=== PATIENT | female | born 2000 | race African-American/Black ===

== ENCOUNTER 2025-01-03 09:32 | Outpatient (AMB) | payer OTHER, SELFPAY ==
--- NOTE | 2025-01-03 09:41 | MHC.OFFVIS ---
Vital Signs 01/03/25 09:45 Height 5 ft Weight 237 lb BMI 46.3 Intake Visit Reasons: 6 Months IIH Allergies No Known Allergies Allergy (Verified 01/01/25 09:51) HPI Comments Details: 24 yo RH woman with obesity who had a routine eye examination on June 21, 2024 when disc edema was noted and she was sent to [facility] ER. She had an LP that revealed opening pressure of 55 and closing pressure of 26, after which she was put on acetazolamide. She had an eye exam recently and was told that her eyes were better. No headaches or double vision. [facility] Medical History (Updated 01/03/25 @ 09:44 by Marla Huertas MD) Idiopathic intracranial hypertension Review of Systems Const Details: No headaches or double vision. Physical Exam Neuro Other: Mental Status: Alert and oriented to person, place, and time. Normal attention. Normal spontaneous speech, fluency, and comprehension. No obvious issues with mood and memory. Affect is appropriate. Cranial Nerves: CN II: Visual can full to confrontation, visual acuity intact. CN III, IV, : Pupils equal, round, reactive to light and accommodation. Extraocular movements are normal. CN V: Facial sensation is normal. CN VII: Facial movements symmetrical. CN VIII: Hearing intact to bedside conversation is normal. CN IX, X: Palate elevates symmetrically. CN XI: Shoulder shrug and head turn symmetrical. CN XII: Tongue midline without atrophy or fasciculations. Extrapyramidal: Full facial expressions and blinking. No rigidity. Movements are appropriate with no tremor or abnormality. Speech: Normal; no dysarthria or tremor. Assessment & Plan Assessment & Plan (1) Idiopathic intracranial hypertension: Comment: LP at [facility] in Jun 2024: OP 55cm, WBCs 1, RBCs 1, Gu 75, Pro 17.? 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 Recent eye examination was better. She was advised to continue to lose weight. She is advised to continue taking the medicine for now and follow-up with eye doctor. Medications: New acetazolamide 250 mg PO ONCE 90 tabs 1RF Coding Level of Care Code Est Pt Level 4 (11709) Diagnoses Idiopathic intracranial hypertension G93.2
[2025-01-03 09:45] VITALS: BMI 46.3
== END 2025-01-03 09:49 | disposition home or self-care (01) ==
LOC: HO.HSM 09:33
PROVIDERS: PCP Internal Medicine; Referring Provider Internal Medicine; Visit Provider Psychiatry & Neurology Neurology
DX: G93.2 Benign intracranial hypertension (principal)
CPT/HCPCS: 99214

== ENCOUNTER → 2025-01-03 09:32 | Outpatient (BNVA) | payer OTHER, SELFPAY | PROVIDERS: PCP Internal Medicine; Referring Provider Internal Medicine; Visit Provider Psychiatry & Neurology Neurology | DX: G93.2 Benign intracranial hypertension (principal) | CPT/HCPCS: 99212 ==